=== PATIENT | female | born 1930 | race African-American/Black ===

== ENCOUNTER 2019-12-14 20:33 | Emergency (ER) | payer MEDICARE, BC ==
--- NOTE | 2019-12-14 21:42 | RADIOLOGY REPORT (SQ) ---
EXAM DESCRIPTION: XR ELBOW 3 VIEWS COMPLETED DATE/TME: 12/14/2019 20:55 CLINICAL HISTORY: 89 years, Female, fall COMPARISON: None. NUMBER OF VIEWS: 4 TECHNIQUE: Frontal, lateral, and oblique radiographs were obtained LIMITATIONS: None. FINDINGS: Visualized osseous structures are normal in appearance. Joint spaces are well-maintained. No acute fracture or dislocation is evident. No significant elbow joint effusion. However, there is soft tissue swelling about the posterior aspect of the elbow. IMPRESSION: Soft tissue swelling about the posterior aspect of the elbow without underlying acute osseous anomaly. copyright 2010 [id number]- All Rights Reserved
--- NOTE | 2019-12-14 21:50 | RADIOLOGY REPORT (SQ) ---
EXAM DESCRIPTION: [employer]: XR HIP 2 OR MORE VIEWS Views: 2, AP pelvis and additional view of left hip CLINICAL HISTORY: 89 years Female; fall; COMPARISON: None. FINDINGS: Pelvic alignment is anatomic. No acute pelvic fracture. Degenerative changes are partially visualized in the lower lumbar spine. Left hip: No fracture or dislocation. IMPRESSION: 1. No acute findings.
--- NOTE | 2019-12-14 23:41 | ER Document Report ---
Entered by KITTY PLUMMER SCRIBE 12/14/19 1406 Acting as scribe for:BONNIE THORPE IV, MD ED Fall - General Chief Complaint: Fall Stated Complaint: FALL,ELBOW PAIN Mode of Arrival: Medic Information source: Patient, Emergency Med Personnel Notes: This 89 year old female patient with a history of A fib on blood thinners brought in by EMS from home presents to the ED today with complaints of a fall that occurred yesterday. Per nursing, patient hit her left elbow and hip. She may have also hit her head per patient's granddaughter. TRAVEL OUTSIDE OF THE [place] IN LAST 30 DAYS: No - Related data Allergies/Adverse Reactions: No Known Allergies Allergy (Verified 08/14/14 20:17) Past Medical History - Social History Smoking Status: Former Smoker Smoking Education Provided: No Frequency of alcohol use: None Drug Abuse: None Lives with: Family Family History: Reviewed & Not Pertinent Patient has suicidal ideation: No Patient has homicidal ideation: No - Past Medical History Cardiac Medical History: Reports: Hx Atrial Fibrillation, Hx Hypercholesterolemia, Hx Hypertension Endocrine Medical History: Reports: Hx Hypothyroidism Past Surgical History: Reports: Hx Appendectomy, Hx Cholecystectomy, Hx Hysterectomy, Hx Urinary Tract Surgery - Immunizations Hx Diphtheria, Pertussis, Tetanus Vaccination: Yes Hx Pneumococcal Vaccination: 04/17/11 Review of Systems - Review of Systems Constitutional: No symptoms reported EENT: No symptoms reported Cardiovascular: No symptoms reported Respiratory: No symptoms reported Gastrointestinal: No symptoms reported Genitourinary: No symptoms reported Female Genitourinary: No symptoms reported Musculoskeletal: See HPI, Joint pain, Joint swelling Skin: No symptoms reported Hematologic/Lymphatic: No symptoms reported Neurological/Psychological: No symptoms reported -: Yes All other systems reviewed and negative Physical Exam - Vital signs Vitals: Temp 98.1 F 12/14/19 20:43 - General General appearance: Alert In distress: None - HEENT Head: Normocephalic, Atraumatic Eyes: Normal Extraocular movements intact: Yes Pupils: PERRL - Respiratory Respiratory status: No respiratory distress Chest status: Nontender Breath sounds: Normal Chest palpation: Normal - Cardiovascular Rhythm: Regular Heart sounds: Normal auscultation Murmur: No Friction rub: No Gallop: None auscultated - Abdominal Inspection: Normal Distension: No distension Bowel sounds: Normal Tenderness: Nontender - Abdomen soft Organomegaly: No organomegaly - Back Back: Normal, Nontender - Extremities General lower extremity: Normal inspection - No external rotation or foreshortening Elbow: Ecchymosis - Left elbow, full active ROM. No: Limited ROM - Neurological Neuro grossly intact: Yes - Psychological Associated symptoms: Normal affect, Normal mood - Skin Skin Temperature: Warm Skin Moisture: Dry Skin Color: Normal Course - Re-evaluation Re-evalutation: 12/15/19 00:47 Results of ED MSE discussed with patient. All questions were answered prior to discharge. Emergency signs and symptoms, reasons to return to the emergency department discussed with patient. - Vital Signs Vital signs: Temp Pulse Resp BP Pulse Ox 98.1 F 60 16 130/63 H 96 12/14/19 20:45 12/14/19 20:45 12/14/19 20:45 12/14/19 20:45 12/14/19 20:45 Discharge - Discharge Clinical Impression: Accidental fall Qualifiers: Encounter type: initial encounter Qualified Code(s): W19.XXXA - Unspecified fall, initial encounter Left elbow contusion Qualifiers: Encounter type: initial encounter Qualified Code(s): S50.02XA - Contusion of left elbow, initial encounter Contusion of left hip Qualifiers: Encounter type: initial encounter Qualified Code(s): S70.02XA - Contusion of left hip, initial encounter Condition: Stable Disposition: HOME, SELF-CARE Additional Instructions: Contusion Your injury has resulted in a contusion -- a crushing of the deep tissues. No injury to important structures was detected during the physician's exam. Contusions vary in the amount of pain they cause, and in the length of time required for healing. Typically, the area will become bruised, and will remain painful to touch for two or three weeks. However, most patients are back to working and playing within a few days. After the initial period of rest and cold-packs, your symptoms (together with the doctor's recommendations) will determine how rapidly you can get back to full activity. Usually this means "do what feels okay, but don't do things that hurt." If re-examination was recommended, it's important to follow up as instructed. Call the doctor or return any time if pain increases, if swelling becomes severe, if you develop numbness or weakness in an injured extremity, or if any other alarming symptoms occur. Referrals: JUAN ALBERTO QUINONEZ MD [HONORARY] - Follow up as needed I personally performed the services described in the documentation, reviewed and edited the documentation which was dictated to the scribe in my presence, and it accurately records my words and actions.
--- NOTE | 2019-12-15 00:22 | RADIOLOGY REPORT (SQ) ---
INDICATION: fall. Pain COMPARISON: CT brain July 19, 2014 CORRELATION: None TECHNIQUE: Noncontrast spiral axial CT images were obtained from the skull base to vertex. Noncontrast spiral axial CT imaging through the cervical spine with multiplanar reconstructions. This exam was performed according to our departmental dose-optimization program, which includes automated exposure control, adjustment of the mA and/or kV according to patient size and/or use of iterative reconstruction techniques. FINDINGS: BRAIN: There is no evidence of acute intracranial hemorrhage, midline shift, mass effect or mass lesion. Rose-white differentiation is normal. There is no evidence of acute large territory infarct. Ventricles and extracerebral spaces are within normal limits, for age. The visualized paranasal sinuses are grossly clear. The orbits and eyeballs are unremarkable. The mastoid air cells are clear. Skull base and calvarium appear intact. CERVICAL SPINE: No acute displaced fracture is identified of the cervical spine. Alignment is anatomic. No focal alignment abnormality is identified. The uncovertebral joints and facets are within normal limits, for age. Surrounding soft tissues of the neck are unremarkable. Chronic changes at the lung apices. Vascular calcification. Linear lucency traversing the right superior articular facet of L5 does not have the appearance of acute fracture. IMPRESSION: No acute intracranial process is identified. No acute bony injury is seen to the cervical spine.
[2019-12-15 01:39] VITALS: BP 120/99
== END 2019-12-15 02:15 | disposition home or self-care (01) ==
LOC: ER 20:33
DX: S50.02XA Contusion of left elbow, initial encounter (principal); S70.02XA Contusion of left hip, initial encounter; W19.XXXA Unspecified fall, initial encounter; M25.40 Effusion, unspecified joint; I10 Essential (primary) hypertension; I48.91 Unspecified atrial fibrillation; Z79.899 Other long term (current) drug therapy; Z87.891 Personal history of nicotine dependence
CPT/HCPCS: 70450; 72125; 99284